=== PATIENT | male | born 1975 | race Two or more races ===

== ENCOUNTER 2018-12-08 06:15 | Day surgery (SDC) | payer OTHER ==
[~2018-12-08 06:15] MED LIST: COREG CR80 MG PO; PRILOSEC OTC20 MG PO; TRIBENZOR 40-51 EAC1 PO; ZETIA10 MG PO
== END 2018-12-08 17:30 | disposition home or self-care (01) ==
LOC: CIR.AMB 06:15
DX: K40.91 Unilateral inguinal hernia, without obstruction or gangrene, recurrent (principal)